=== PATIENT | male | born 1965 | race Caucasian/White ===

== ENCOUNTER 2019-09-28 05:14 | Emergency (ER) | payer OTHER ==
[2019-09-28] MEDS ORDERED: DIAZEPAM 5 MG TABLET ONE (05:58)
[2019-09-28] MEDS ORDERED: KETOROLAC 30 MG/ML INJ ONE (05:58)
[2019-09-28 13:57] VITALS: BP 139/88; O2SAT 100
--- NOTE | 2019-10-03 14:17 | EDPHYS ---
Physician Documentation [facility] Name: Pako Maharaj Age: 54 yrs Sex: Male : 1965 Arrival Date: 09/28/2019 Time: 05:14 Bed 8 Private MD: ED Physician Toribio Edge HPI: 09/27 05:48 This 54 yrs old Male presents to ER via Ambulatory with complaints of Back Pain. ma2 05:48 The patient presents with pain that is acute. The symptoms are located in the right low ma2 back. Associated signs and symptoms: Pertinent negatives: chest pain, dysuria, incontinence, urinary retention. The problem was sustained when lifting. Severity of symptoms: At their worst the symptoms were mild, in the emergency department the symptoms are unchanged. The patient has not experienced similar symptoms in the past. Historical: - Allergies: 05:37 No Known Allergies; ea - Home Meds: 05:37 amlodipine 10 mg tab 1 tab once daily [Active]; ea - PMHx: 05:37 Hypertension; ea - PSHx: 05:37 None; ea - Immunization history:: Adult Immunizations up to date. - Social history:: Patient/guardian denies using alcohol, street drugs, The patient lives with family, Smoking status: Patient denies any tobacco usage or history of. - Family history:: not pertinent. ROS: 05:48 Constitutional: Negative for fever, chills, and weight loss, Cardiovascular: Negative ma2 for chest pain, palpitations, and edema, Respiratory: Negative for shortness of breath, cough, wheezing, and pleuritic chest pain, Abdomen/GI: Negative for abdominal pain, nausea, diarrhea, and constipation, Back: Negative for injury and pain, : Negative for injury, bleeding, discharge, and swelling, MS/Extremity: Negative for injury and deformity, Neuro: Negative for headache, weakness, numbness, tingling, and seizure, Psych: Negative for depression, anxiety, suicide ideation, homicidal ideation, and hallucinations, Allergy/Immunology: Negative for hives, rash, and allergies, Endocrine: Negative for neck swelling, polydipsia, polyuria, polyphagia, and marked weight changes. Exam: 05:48 Constitutional: This is a well developed, well nourished patient who is awake, alert, ma2 and in no acute distress. Chest/axilla: Normal chest wall appearance and motion. Nontender with no deformity. No lesions are appreciated. Cardiovascular: Regular rate and rhythm with a normal S1 and S2. No gallops, murmurs, or rubs. Normal PMI, no JVD. No pulse deficits. Respiratory: Lungs have equal breath sounds bilaterally, clear to auscultation and percussion. No rales, rhonchi or wheezes noted. No increased work of breathing, no retractions or nasal flaring. Abdomen/GI: Soft, non-tender, with normal bowel sounds. No distension or tympany. No guarding or rebound. No evidence of tenderness throughout. Back: No spinal tenderness. No costovertebral tenderness. Full range of motion. Skin: Warm, dry with normal turgor. Normal color with no rashes, no lesions, and no evidence of cellulitis. MS/ Extremity: Pulses equal, no cyanosis. Neurovascular intact. Full, normal range of motion. Neuro: Awake and alert, GCS 15, oriented to person, place, time, and situation. Cranial nerves II-XII grossly intact. Motor strength 5/5 in all extremities. Sensory grossly intact. Cerebellar exam normal. Normal gait. Vital Signs: 05:35 BP 139 / 88; Pulse 67; Resp 18; Pulse Ox 100% ; ea MDM: 05:18 Patient medically screened. oh2 05:48 Differential diagnosis: Obesity Osteoarthritis sprain. Data reviewed: vital signs, oh2 nurses notes. Counseling: I had a detailed discussion with the patient and/or guardian regarding: the historical points, exam findings, and any diagnostic results supporting the discharge/admit diagnosis, the presence of at least one elevated blood pressure reading (>120/80) during this emergency department visit, the need for outpatient follow up. Response to treatment: the patient's symptoms have markedly improved after treatment. Administered Medications: 05:55 Drug: Valium 10 mg Route: PO; ea 05:59 Follow up: Response: Medication administered at discharge. ea 05:56 Drug: TORadol 60 mg Route: IM; Site: right gluteus; ea 05:59 Follow up: Response: Medication administered at discharge. ea Disposition: 09/28/19 05:50 Discharged to Home. Impression: Low back pain. - Condition is Stable. - Discharge Instructions: Back Pain, Adult. - Prescriptions for Valium 10 mg Oral Tablet - take 1 tablet by ORAL route every 8 hours As needed; 20 tablet. Diclofenac Sodium 75 mg Oral Tablet Sustained Release - take 1 tablet by ORAL route 2 times per day; 30 tablet. Tramadol 50 mg Oral Tablet - take 1 tablet by ORAL route every 8 hours as needed; 12 tablet. - Medication Reconciliation Form, Thank You Letter, Antibiotic Education, Prescription Opioid Use form. - Follow up: Private Physician; When: Tomorrow; Reason: Continuance of care. Signatures: Viktoria Gonzalez RN RN ea Alzahri, Mohammad, MD MD ma2 Corrections: (The following items were deleted from the chart) 06:00 05:50 09/28/2019 05:50 Discharged to Home. Impression: Low back pain. Condition is ea Stable. Forms are Medication Reconciliation Form, Thank You Letter, Antibiotic Education, Prescription Opioid Use. Follow up: Private Physician; When: Tomorrow; Reason: Continuance of care. ma2
--- NOTE | 2019-10-03 14:17 | ER ---
Nurse's Notes [facility] Name: Pako Maharaj Age: 54 yrs Sex: Male : 1965 Arrival Date: 09/28/2019 Time: 05:14 Bed 8 Private MD: Diagnosis: Low back pain Presentation: 09/27 05:32 Coronavirus screen: Proceed with normal triage. Ebola Screen: No symptoms or risks ea identified at this time. 05:32 Method Of Arrival: Ambulatory ea 05:33 Initial Sepsis Screen: Does the patient meet any 2 criteria? No. Patient's initial ea sepsis screen is negative. Does the patient have a suspected source of infection? No. Patient's initial sepsis screen is negative. 05:34 Risk Assessment: Do you want to hurt yourself or someone else? Patient reports no ea desire to harm self or others. 05:36 Chief complaint: Patient states: Pt complaining of left lower back that does not ea radiate, piercing pain that started around 0300. Onset of symptoms was September 28, 2019. 05:36 Acuity: ANASTASIA 4 ea Triage Assessment: 05:37 General: Appears in no apparent distress. Behavior is appropriate for age. Pain: ea Complains of pain in left low back. Musculoskeletal: Circulation, motion, and sensation intact. Historical: - Allergies: 05:37 No Known Allergies; ea - Home Meds: 05:37 amlodipine 10 mg tab 1 tab once daily [Active]; ea - PMHx: 05:37 Hypertension; ea - PSHx: 05:37 None; ea - Immunization history:: Adult Immunizations up to date. - Social history:: Patient/guardian denies using alcohol, street drugs, The patient lives with family, Smoking status: Patient denies any tobacco usage or history of. - Family history:: not pertinent. Screenin:32 Abuse screen: Denies threats or abuse. Nutritional screening: No deficits noted. ea Tuberculosis screening: No symptoms or risk factors identified. Fall Risk None identified. Assessment: 05:38 General: Appears in no apparent distress. Behavior is calm, cooperative. Pain: ea Complains of pain in left low back. Neuro: Level of Consciousness is awake, alert, obeys commands, Oriented to person, place, time. Respiratory: Airway is patent Respiratory effort is even, unlabored, Respiratory pattern is regular, symmetrical. Derm: Skin is pink, warm \T\ dry. 05:58 Reassessment: Patient and/or family updated on plan of care and expected duration. Pain ea level reassessed. Patient is alert, oriented x 3, equal unlabored respirations, skin warm/dry/pink. Discharge instruction given to patient, verbalized the understanding of instruction. Pt left ED ambulatory tolerating well. Vital Signs: 05:35 BP 139 / 88; Pulse 67; Resp 18; Pulse Ox 100% ; ea ED Course: 05:14 Patient arrived in ED. sg 05:18 Toribio Edge MD is Attending Physician. ma 05:32 Arm band placed on right wrist. Patient placed in an exam room, on a stretcher, on ea pulse oximetry. 05:32 Patient has correct armband on for positive identification. Bed in low position. Call ea light in reach. Side rails up X 1. 05:33 Spencer Rockwell RN is Primary Nurse. rv 05:36 Triage completed. ea 05:59 No provider procedures requiring assistance completed. Patient did not have IV access ea during this emergency room visit. Administered Medications: 05:55 Drug: Valium 10 mg Route: PO; ea 05:59 Follow up: Response: Medication administered at discharge. ea 05:56 Drug: TORadol 60 mg Route: IM; Site: right gluteus; ea 05:59 Follow up: Response: Medication administered at discharge. ea Outcome: 05:50 Discharge ordered by . ma2 05:59 Discharged to home ambulatory. ea 05:59 Condition: stable 05:59 Discharge instructions given to patient, Instructed on discharge instructions, follow up and referral plans. medication usage, Demonstrated understanding of instructions, follow-up care, medications, Prescriptions given X 3. 06:00 Patient left the ED. ea Signatures: Yogesh Diana RN NUBIA Viktoria Gonzalez RN RN ea Alzahri, Mohammad, MD MD ma2 Vicente, Ronaldo, RN RN rv
== END 2019-09-28 06:00 | disposition home or self-care (01) ==
LOC: ER 05:14
DX: M54.5 Low back pain (principal); I10 Essential (primary) hypertension
CPT/HCPCS: 96372; 99283